=== PATIENT | male | born 2005 | race Two or more races ===

== ENCOUNTER 2023-10-05 10:52 | Outpatient (REF) | payer MEDICAID, SELFPAY ==
[2023-10-05 14:24] LABS: MANUAL DIFF FLAG NO
[2023-10-05 14:39] LABS: Basophils Percent Auto 0.5 % (0-2); Eosinophils Absolute Auto 0.1 X10*3/uL (0.0-0.4); Eosinophils Percent Auto 1.2 % (0-4); Hematocrit 43.1 % (42.0-52.0); Hemoglobin 14.1 g/dl (14.0-18.0); Imm Gran Abs Auto 0.01 X10*3/uL (0.00-0.03); Imm Gran Pct Auto 0.2 % (0.0-0.4); Lymphocytes Absolute Auto 1.7 X10*3/uL (1.2-4.9); Lymphocytes Percent Auto 29.2 % (20-40); Mean Corpuscular HGB Conc 32.7 g/dl (31.0-36.0); Mean Corpuscular Hemoglobin 28.3 pg (27.0-33.0); Mean Corpuscular Volume 86.4 fL (80.0-98.0); Monocytes Absolute Auto 0.5 X10*3/uL (0.1-1.2); Monocytes Percent Auto 7.9 % (2-11); Neutrophils Absolute Auto 3.5 x10*3/uL (2.0-8.3); Platelet Count 293 X10*3/uL (160-400); Red Blood Count 4.99 X10*6/uL (4.60-5.80); Red Cell Distribution Width 13.4 % (11.0-16.0); White Blood Count 5.7 X10*3/uL (4.8-10.8)
[2023-10-05 14:42] LABS: Alanine Aminotransferase 19 U/L (0-40); Albumin Level 4.7 g/dL (3.5-5.0); Alkaline Phosphatase 60 U/L (39-117); Anion Gap 12 (12-20); Aspartate Amino Transferase 16 U/L (5-37); Bilirubin Total 0.6 mg/dL (0.0-1.0); Blood Urea Nitrogen 17 mg/dL (9-16); Calcium 9.7 mg/dL (8.4-10.2); Carbon Dioxide 29 mmol/L (22-29); Chloride 104 mmol/L (96-108); Cholesterol 153 mg/dL (<200); Estimated Glomerular Filt Rate > 60; Glucose Random 90 mg/dL (60-115); HDL Cholesterol 45 mg/dL (>40); LDL Cholesterol Calculated 97 mg/dL (<100); Sodium 141 mmol/L (135-145); Total Protein 7.5 g/dL (6.5-8.0); Triglycerides 58 mg/dL (<150)
[2023-10-06 04:22] LABS: HIV AB/AG Nonreactive (Nonreactive); HIV Num 1 0.05 S/CO (0.00-0.99); ~HepC Num1 0.08 S/CO (0.00-0.79); ~Hepatitis C Antibody Nonreactive (Nonreactive)
== END 2023-10-05 10:53 | disposition home or self-care (01) ==
LOC: HO.CHCLDS 10:52
PROVIDERS: Visit Provider Family Medicine
DX: Z13.9 Encounter for screening, unspecified (principal); Z11.4 Encounter for screening for human immunodeficiency virus [HIV]; Z13.6 Encounter for screening for cardiovascular disorders
CPT/HCPCS: 36415; 80053; 80061; 85025; 86803; 87389

== ENCOUNTER 2025-02-01 18:31 | Outpatient (REF) | payer MEDICAID, SELFPAY ==
--- OUTSIDE RECORDS SUMMARY | 2025-02-01 18:33 | XMS_ITS | Clinical Summary ---
Author Organization [employer] Address [address] [facility] [address] [place] [address] Care Team Providers Care Fabrication Technician Name Role Phone Babs Acuña MD Primary Care Provider [phone] Allergies No known active allergies Medications benzoyl peroxide (Benzoyl Peroxide Wash) 5 % external wash APPLY TOPICALLY EVERY DAY NEEDED FOR ACNE 227 g 12/15/19 23 Active hydrocortisone 2.5 % creamIndication s:Seborrheic dermatitis Apply topically 2 times daily. 20 g 3 04/25/20 24 Active sertraline (Zoloft) 25 MG tablet Take 1 tablet (25 mg) by mouth Once per day. 90 tablet 3 08/26/19 25 026 Active ketoconazole (NIZOral) 2 % shampooIndicati ons:Seborrheic dermatitis Apply topically 2 (two) times a week. 120 mL 3 04/27/20 24 025 Discontinued tretinoin (Retin-A) 0.025 % creamIndication s:Acne vulgaris Apply topically at bedtime. 45 g 2 04/25/20 24 025 Discontinued propranolol (Inderal) 10 MG tabletIndicatio ns:Nonintractab le episodic headache, unspecified headache type Take 1 tablet (10 mg) by mouth Once per day for 14 days. 14 tablet 08/20/19 25 025 Discontinued Active Problems Problem Noted Date Diagnosed Date Anxiety 02/01/2025 Acne vulgaris 04/25/2024 Encounter for health-related screening 4 Assessment & Plan (06/24/2023 4:51 PM EST): Will send screening labs. Encounters Date Type Department Care Team Description 02/01/2025 2:00 PM EDT Office Visit [facility] [address], [place] [phone] Babs Acuña MD Anxiety (Primary Dx); Annual physical exam 02/01/2025 Travel 01/24/2025 Patient Outreach [facility] [address], [place] [phone] Babs Acuña MD Pre-visit Planning (Pre visit planning LVM ) 01/24/2025 Telephone [facility] [address], [place] [phone] Babs Acuña MD chart prep from Last 3 Months Immunizations Immunization Administration Dates Next Due BCG 01/17/2019,10/17/2018 DTP 08/21/2016,03/10/2012 HPV 9-Valent 07/11/2017,01/12/2017 Hep A, ped/adol, 2 dose 05/05/2022,02/14/2019 Hep B, Adolescent or Pediatric 01/05/2018,2016,08/21/2016 IPV 02/14/2019, 8,01/21/2008,11/27 Influenza injectable quadriv alent preservative free 06/24/2023,05/05/2022 MMR 07/01/2016,03/10/2005 Meningococcal MCV4P [id number]-135 05/05/2022,02/15/20 19 Novel [id number], all formulations 11/20/2016 OPV, Unspecified 02/06/2010, 8,02/05/2007,11/27 Tdap 02/14/2019 Varicella 05/05/2022,02/20/2019 Yellow Fever 07/08/2012 Social History Tobacco Use Types Packs/Day Years Used Date Smoking Tobacco: Never Smokeless Tobacco: Never Tobacco Cessation:Counseling Given: Not Answered Alcohol Answer Date Recorded Frequency of Alcohol Consumption Not on file 06/24/2023 Average Number of Drinks Not on file 024 Frequency of Binge Drinking Not on file 06/14 Score 0 06/24/2023 Depression Answer Date Recorded Patient Health Questionnaire-9 Score 0 02/01/2025 Patient Health Questionnaire-9 Score 0 02/01/2025 Last PHQ-9: Questionnaire Data Not on file 0 02/01/2025 Housing Stability Answer Date Recorded What is your housing situation today? I have nelsy spencer 06/18/[address] you li ve. Do you have problems with any of the following? None of the above 06/18/2023 Food Insecurity Answer Date Recorded Within the past 12 months, y ou worried that your food would run out before you got money to buy more: Never True 06/18/2023 Within the past 12 months,th e food you bought just didn't last and you didn't have enough money to get more: Never True 10/2023 Transportation Answer Date Recorded In the past 12 months, has l ack of transportation kept you from medical appts, meetings, work or from getting things needed for daily living? No 06/18/2023 Utilities Answer Date Recorded In the past 12 months, has t he electric, gas, oil or water company threatened to shut off services in your home? No 06/18/2023 Depression Answer Date Recorded Patient Health Questionnaire-2 Score 0 02/01/2025 Sex and Gender Information Value Date Recorded Sex Assigned at Male 04/13/2022 10:38 AM EDT Legal Sex Male 10:38 AM EDT Gender Identity Male 04/13/2022 10:38 AM EDT Sexual Orientation Choose not to disclose 2021 10:38 AM EDT Last Filed Vital Signs Vital Sign Reading Time Taken Comments Blood Pressure 115/64 02/01/2025 2:12 PM EDT Pulse 66 02/01/2025 2:12 PM EDT Temperature 36.9 C (98.4 F) 02/01/2025 2:12 PM EDT Respiratory Rate 20 02/01/2025 2:12 PM EDT Oxygen Saturation 98% 02/01/2025 2:12 PM EDT Inhaled Oxygen Concentration - - Weight 66.1 kg (145 lb 12.8 oz) 02/01/2025 2:12 PM EDT Height 167 cm (5' 5.75 ) 02/01/2025 2:12 PM EDT Body Mass Index 23.71 02/01/2025 2:12 PM EDT Plan of Treatment Health Maintenance Due Date Last Done Comments Chlamydia and Gonorrhea Screening 2003 Family Planning (PISQ) 08/25/2018 Meningococcal B Vaccine (1 of 2 - Standard) 2019 COVID-19 Vaccine (1 - season) 2024 SDOH Screening 06/24/2024 06/24/2023 Influenza Vaccine (#1) 2025 , 05/05/2022, 11/20/2016 Dental Oral Exam 04/29/2025 10/26/2024 Dental Prophylaxis 04/29/2025 10/26/2024 Dental X-Ray: Bitewings 10/27/2025 10/26/2024 Alcohol/Substance Use Screening 02/01/2026 02/01/2025 Depression Screening 02/01/2026 02/01/2025, 02/02/20 25 Disability Screening 02/01/2026 02/01/2025 Tobacco Screening 02/01/2026 02/01/2025 Dental X-Ray: Full Mouth 10/28/2027 10/26/2024 DTaP/Tdap/Td Vaccines (4 - Td or Tdap) 02/14/2029 02/14/2019, 08/21/2016, 03/10/2012 Zoster Vaccines (1 of 2) 08/25/2053 RSV Patients and Patients Aged 60 years or older (1 - 1-dose 75+ series) 08/25/2078 HPV Vaccines Completed 07/11/2017, 01/12/2017 Hepatitis B Vaccines Completed 01/05/2018, 11/20/2016, 08/21/2016 IPV Vaccines Completed 02/14/2019, 01/13, 02/01/2008, Additional history exists Hepatitis A Vaccines Completed 05/05/2022, 02/15/20 19 Meningococcal Vaccine Completed 05/05/2022, 019 HIV Screening Completed 10/05/2023 Hepatitis C Screening Completed 10/05/2023 HIB Vaccines Aged Out No longer eligi ble based on patient's age to complete this topic Pneumococcal Vaccine: Pediatrics (0 to 5 Years) and At-Risk Patients (6 to 49) Years Aged Out No longer eligible based on patient's age to complete this topic RSV under 20 months Aged Out No longe r eligible based on patient's age to complete this topic Rotavirus Vaccines Aged Out No longer eligible based on patient's age to complete this topic Procedures Procedure Name Priority Date/Time Associated Diagnosis Comments PROPHYLAXIS - ADULT Routine 10/26/2024 9 :00 AM EDT INTRAORAL - COMPLETE SERIES OF RADIOGRAPHIC IMAGES Routine 10/26/2024 9:00 AM EDT PERIODIC ORAL EVALUATION - ESTABLISHED PATIENT Routine 10/26/2024 9:00 AM EDT HEPATITIS C AB W/REFL TO HCV RNA, QN, PCR Routine 10/05/2023 10:57 AM EDT Encounter for health-related screening HIV 1/2 ANTIGEN/ANTIBODY, FOURTH GENERATION W/RFL Routine 10/05/2023 10:57 AM EDT Encounter for health-related screening from Last 3 Months or Most Recently Relevant to Health Maintenance Results * Hepatitis C Antibody with Reflex to HCV, RNA, Quantitative, Real-Time PCR (10/05/2023 10:57 AM EDT) Hepatitis C Antibody Nonreactive Nonreactive [facility] Comment:Antibodies to HCV no t detected; does not exclude early acuteHCV infection. Blood Venous blood specimen / Unknown 10/05/2023 10:57 AM EDT 10/05/2023 2:17 PM EDT us Babs Acuña MD LAB BLOOD ORDERABLES Final Re sult [facility] [address] [place] [phone] * HIV-1/2 Antigen and Antibodies, Fourth Generation, with Reflexes (10/05/2023 10:57 AM EDT) HIV AB/AG Nonreactive Nonreactive [facility] Comment:HIV-1 p24 Ag and/or HIV-1/HIV-2 Ab not detected.A test result that is nonreactive does not exclude thepossibility of exposure to or infection with HIV-1 and/orHIV-2. Nonreactive results in this assay for individualswith prior exposure to HIV-1 and/or HIV-2 may be due toantigen and antibody levels that are below the limit ofdetection of this assay.The [facility] HIV Ag/Ab Combo assay result andsupplemental assay results should be interpreted inconjunction with the patient's clinical presentation,history and other laboratory results. If the results areinconsistent with clinical evidence, additional testing issuggested to confirm the result. Blood Venous blood specimen / Unknown 10/05/2023 10:57 AM EDT 10/05/2023 2:17 PM EDT us Babs Acuña MD LAB BLOOD ORDERABLES Final Re sult [facility] [address] [place] [phone] from Last 3 Months or Most Recently Relevant to Health Maintenance Insurance [facility] MEDICAID LIMITED ADULT DENTAL - HSN FULL (MEDICAID) Care Teams Fabrication Technician Relationship Specialty Start Date End Date Babs Acuña MD [address] [place] [address] PCP - General Family Medicine 06/24/23
[2025-02-02 12:37] LABS: CT PCR Urine NOT DETECTED (Not Detect.); NG PCR Urine NOT DETECTED (Not Detect.)
== END 2025-02-01 18:32 | disposition home or self-care (01) ==
LOC: HO.HHCLNP 18:31
PROVIDERS: Visit Provider Family Medicine
DX: Z00.00 Encounter for general adult medical examination without abnormal findings (principal)
CPT/HCPCS: 87491; 87591